=== PATIENT | female | born 1980 | race Two or more races ===

== ENCOUNTER 2017-12-14 15:00 | Outpatient (AMBR) | payer MEDICAID, SELFPAY ==
--- NOTE | 2017-12-14 15:29 | PT.ODAYNRPT ---
PT Outpatient Daily Note Date of Service: December 14, 2017 OP Daily Note Visit Reasons: right shoulder Outpatient Physical Therapy Treatment Date: 12/14/17 Subjective: Pt mention that her shoulder still pop with pain. Objective: Please see flow chart for list of ther ex performed Assessment: tolerate exercises with minimal pain Plan: Continue with PT Length of Time (minutes) of Treatment: 30 Minutes Office Procedures PT Procedures PT Date of Service: 12/14/17 Therapeutic Exercise 30 minutes: Yes
== END 2017-12-17 23:59 | disposition home or self-care (01) ==
PROVIDERS: Visit Provider Physician Assistant
DX: I10 Essential (primary) hypertension (principal)
CPT/HCPCS: 97110

== ENCOUNTER 2017-12-22 08:30 | Outpatient (AMBR) | payer MEDICAID, SELFPAY ==
--- NOTE | 2017-12-20 16:37 | PT.ODAYNRPT ---
PT Outpatient Daily Note Date of Service: December 20, 2017 OP Daily Note Visit Reasons: shoulder pain Outpatient Physical Therapy Treatment Date: 12/20/17 Subjective: Pt mention that her shoulder feels the same. Pt now notice more pain in her and elbow. Objective: Please see flow chart for list of ther ex performed Assessment: tolerate exercises; no change in pain Plan: Continue with PT Length of Time (minutes) of Treatment: 30 Minutes Office Procedures PT Procedures PT Date of Service: 12/20/17 Therapeutic Exercise 30 minutes: Yes
--- NOTE | 2017-12-22 09:36 | PTNOTE_ITS ---
PT OP Progress/Discharge Note Date of Service: December 22, 2017 Progress Note/DC Note Progress Note/Discharge Note: DC Note Patient Information Visit Reasons: shoulder pain Medical Diagnosis: M25.511 Treatment Dx #1: Right Shoulder Pain Service Continue Service or Discharge: Discharge Discharge Date: 12/22/17 Status Subjective: Pt mention that her shoulder continues to hurt (10/27) and seems to be getting worse over the week. Pt still has difficulty with overhead motions, lifting, chores, cooking, and cleaning. Pt stated that all activities perform up to shoulder height is fine. Pt will like to follow up with PCP and feels comfortable with exercises to be done at home. Objective: Right Shoulder AROM Flexion: 170 deg Abduction: 160 deg with pain ER and IR: WNL Right Shoulder PROM: all motions are WNL with end range pain Right Shoulder MMTs: grossly 3/5 Special Test (+) Jt Chauncey (+) Bicep Load II test (+) Crank test Assessment: Pt demonstrate functional shoulder mobility and strength, however, continues to have shoulder pain anterolateral leading to decline function. Pt will no longer benefit from physical therapy due to minimal progress towards goals. Due to Pt's pain Pt has limitation with overhead motions, chores, lifting , and work duties. Pt was instructed on HEP last session and educated to continue exercises to maintain overall mobility. Pt performed all exercises safely, thank you for your referrals. Plan: D/C home with HEP and follow up with PCP Office Procedures PT Procedures PT Date of Service: 12/20/17 Therapeutic Exercise 30 minutes: Yes PT Procedures PT Date of Service: 12/22/17 Therapeutic Exercise 30 minutes: Yes
== END 2018-01-17 23:59 | disposition home or self-care (01) ==
PROVIDERS: Visit Provider Physician Assistant
DX: M25.511 Pain in right shoulder (principal); I10 Essential (primary) hypertension
CPT/HCPCS: 97110

== ENCOUNTER 2018-07-24 17:30 | Outpatient (AMBR) | payer MEDICAID, SELFPAY ==
--- NOTE | 2018-07-18 14:58 | PT.OIERPT ---
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 She reports pain level depending on activity and at rest the pain is 5/10 that increases with lifting and bringing arm to the side and back and reaching OH. 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 Pt has positive labral testing and impingement testing today and internal rotation is most painful. Eval followed by HEP with materials. 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 Ind with HEP 2. Improved AROM to 155 deg FF, 145 deg abduction, ER to 80 deg 3. Improved strength grossly in all planes of motion to 4/5 4. Pt will reach OH to tall cabinets x10 Treatment Plan 1. Manual therapy 2. Therex 3. Modalities as indicated, moist heat, ice, estim Frequency and Duration 2x a week for 6 weeks Certification Dates: 07/18/18 to 10/18/18 Office Procedures PT Procedures PT Date of Service: 07/18/18 OP PT Eval Mod Complex 30 minutes: Yes
--- NOTE | 2018-07-24 19:21 | PT.ODAYNRPT ---
PT Outpatient Daily Note Date of Service: July 24, 2018 OP Daily Note Visit Reasons: right shoulder pain Outpatient Physical Therapy Treatment Date: 07/24/18 Subjective: Same as time of evaluation Objective: See F/S for therex MT: STM R medial deltoid, subacromial region x7' Assessment: Moderate TTP of sub acromial region that limits abduction and Erot ROM. Plan: Continue per POC Length of Time (minutes) of Treatment: 30 Minutes Office Procedures PT Procedures PT Date of Service: 07/18/18 OP PT Eval Mod Complex 30 minutes: Yes PT Procedures PT Date of Service: 07/24/18 Therapeutic Exercise 30 minutes: Yes
== END 2018-08-17 23:59 | disposition home or self-care (01) ==
PROVIDERS: Visit Provider Physician Assistant
DX: M25.511 Pain in right shoulder (principal)
CPT/HCPCS: 97110; 97162

== ENCOUNTER 2024-02-26 12:31 | Emergency (ER) | payer OTHER, SELFPAY ==
[2024-02-26 12:52] VITALS: BP 104/74; PULSE 87; RESP 19; TEMP 36.7; O2SAT 98; BMI 39.6
--- NOTE | 2024-02-26 12:55 | XR_ITS ---
Examination: CT abdomen and pelvis without contrast. Coronal 3-D reconstructions. Sagittal 2-D reconstructions. Date and time of exam:February 26, 2024 1451 hours INDICATIONS: Onset severe generalized abdominal pain today CTDI: vol (mGy): 12.3 DLP: (mGycm): 725 Technique: Axial images of the abdomen have been obtained, 3 mm slice thickness Intravenous contrast material has not been administered. Low dose protocols were performed. One or more of the following dose reduction techniques were used; automated exposure control, adjustment of the mA and/or KV according to patient size, use of iterative reconstruction technique. Findings: No focal liver or splenic lesions Absent gallbladder No pancreatic or adrenal mass No renal or ureteral calculi, no hydronephrosis Aorta normal size Normal appendix 25 mm fat-containing umbilical hernia, minimal inflammatory change about the umbilical tract No pelvic mass Urinary bladder intact IMPRESSION: Absent gallbladder Minimal inflammatory change about the umbilicus, no abscess Normal appendix No bowel obstruction diverticulitis or free air
--- NOTE | 2024-02-26 12:56 | PD.EDRME ---
Rapid Medical Screening Exam RME Arrival date/time: 02/26/24 12:31 43-year-old female presents emergency department complaints of abdominal pain Chief Complaint: Abdominal Pain Time Seen by Provider: 02/26/24 12:50 Vital signs: Vital Signs Temperature 98.1 F 02/26/24 12:52 Pulse Rate 87 02/26/24 12:52 Respiratory Rate 19 02/26/24 12:52 Blood Pressure 104/74 02/26/24 12:52 Pulse Oximetry (%) 98 02/26/24 12:52 Oxygen Delivery Method Room Air 02/26/24 12:52
[2024-02-26 13:12] LABS: Collection Type, Urine Clean Catch
[2024-02-26 13:18] LABS: Hematocrit 40.1 % (36.0-46.0); Mean Corpuscular Hemoglobin 27.5 pg (25.0-35.0); Mean Corpuscular Volume 85 fL (80-100); Red Blood Count 4.72 Miln/mm3 (4.00-5.20); White Blood Count 14.8 Thou/mm3 (3.6-11.0)
[2024-02-26 13:19] LABS: Basophils # (Auto) 0.1 Thou/mm3 (0.0-0.2); Basophils % (Auto) 1 % (0-2.5); Eosinophils # (Auto) 0.2 Thou/mm3 (0.0-0.5); Eosinophils % (Auto) 1 % (0-10); Immature Granulocytes % (Auto) 1 % (0-0); Immature Granulocytes Auto 0.07 Thou/mm3 (0.00-0.00); Lymphocytes # (Auto) 2.4 Thou/mm3 (1.0-4.8); Lymphocytes % (Auto) 16 % (10-50); Mean Corpuscular HGB Conc 32.4 g/dl (31.0-37.0); Monocytes # (Auto) 0.8 Thou/mm3 (0.0-0.8); Monocytes % (Auto) 5 % (0-12); Neutrophils # (Auto) 11.3 Thou/mm3 (1.8-7.7); Neutrophils % (Auto) 76 % (37-80); Nucleated Red Blood Cell % 0 /100 WBC (0); RDW Standard Deviation 43.8 fL (36.4-46.3)
[2024-02-26 13:37] LABS: Alanine Aminotransferase 11 U/L (10-49); Albumin, Serum 4.8 gm/dL (3.5-5.0); Albumin/Globulin Ratio 1.7 (1.2-2.2); Alkaline Phosphatase 80 U/L (46-116); Anion Gap 7 (7-16); Aspartate Amino Transferase 10 U/L (0-34); BUN/Creatinine Ratio 11 Ratio (12-20); Bilirubin,Total 0.3 mg/dL (0.3-1.2); Blood Urea Nitrogen 9 mg/dL (9-23); Calcium 9.3 mg/dL (8.3-10.6); Calcium (Corrected) 9.3 mg/dL (8.5-10.1); Carbon Dioxide 27.2 mMol/L (20.0-31.0); Chloride 102 mMol/L (98-107); Creatinine (Component) 0.8 mg/dL (0.6-1.3); Estimated Creatinine Clearance 92.7 mL/min (>60); Globulin 2.9 gm/dL (2.3-3.5); Glucose 106 mg/dL (74-106); Lipase 43 U/L (12-53); Osmolality,Calculated 270 (275-295); Platelet Count 380 Thou/mm3 (140-440); Potassium 4.2 mMol/L (3.4-5.1); Sodium 136 mMol/L (136-145); Total Protein 7.7 gm/dL (5.7-8.2); eGFR > 60 See Note
[2024-02-26 13:49] LABS: Bacteria,Urine 4+; Bilirubin,Urine Negative (Negative); Blood,Urine 1+ (Negative); Clarity,Urine Turbid (Clear/Hazy); Color,Urine Lt-Yellow (Lt Yel-Yel); Culture Indicated,Urine Contaminated; Glucose, Urine Negative (Negative); Ketones,Urine Negative (Negative); Leukocyte Esterase,Urine Positive (Negative); Nitrite,Urine Positive (Negative); PH,Urine 6.5 (5.0-7.0); Protein,Urine Negative (Neg - Trace); RBC,Urine 5 /hpf (0-3); Specific Gravity,Urine 1.016 (1.001-1.035); Squamous Epithelial Cell,Urine 11 /hpf (0-5); Urobilinogen,Urine Negative mg/dL (0.0-1.0); WBC,Urine 5 /hpf (0-5)
[2024-02-26 13:51] LABS: HCG Qualitative,Urine Negative
[2024-02-26 16:09] VITALS: BP 120/82; PULSE 83; RESP 18; TEMP 36.9; O2SAT 98
--- NOTE | 2024-02-26 16:39 | PD.EDRME ---
Rapid Medical Screening Exam RME Arrival date/time: 02/26/24 12:31 02/26/24 12:31 43-year-old female presents emergency department complaints of abdominal pain Chief Complaint: Abdominal Pain Time Seen by Provider: 02/26/24 12:50 Vital signs: Vital Signs Temperature 98.1 F 02/26/24 12:52 Pulse Rate 87 02/26/24 12:52 Respiratory Rate 19 02/26/24 12:52 Blood Pressure 104/74 02/26/24 12:52 Pulse Oximetry (%) 98 02/26/24 12:52 Oxygen Delivery Method Room Air 02/26/24 12:52 RME Narrative: 02/26/24 12:31 43-year-old female presents emergency department complaints of abdominal pain
--- NOTE | 2024-02-26 18:03 | EDNOTE_ITS ---
ED General RME/HPI General Chief complaint: Abdominal Pain Stated complaint: IMBILICAL/BELLY PAIN X FRI; WORKERS COMP Time Seen by Provider: 02/26/24 12:50 Arrival date/time: 02/26/24 12:31 Low center abdominal pain HPI ongoing for the past 3 days constant, the patient had a similar episode years ago when she had umbilical hernia that was repaired by Dr. Coleman. Patient denies fever chills nausea vomiting painful urinary basilar bloody urination. Related Data Previous Rx's ?Medication ?Instructions ?Recorded hydrocodone 5 mg-acetaminophen 325 1 tab PO Q8H PRN pain #15 tabs 05/03/20 mg tablet ([place]) cephalexin 500 mg capsule 500 mg PO Q8H #20 caps 07/03/20 ciprofloxacin HCl 500 mg tablet 500 mg PO BID #14 tabs 02/26/24 (Cipro) meloxicam 7.5 mg tablet 7.5 mg PO QDAY #14 tabs 02/26/24 Allergies Allergy/AdvReac Type Severity Reaction Status Date / Time No Known Allergies Allergy Verified 02/26/24 12:33 Review of Systems Review of Systems Narrative Review of Systems: GEN: No fever, no chills, no weight loss EYES: No discharge, no visual changes, no pain HEENT: No ear pain, no congestion, no sore throat PULM: No shortness of breath, no cough, no congestion CV: No chest pain, no dyspnea on exertion, no palpitations GI: No nausea, no vomiting, no diarrhea, + pain, no constipation : No frequency, no urgency, no dysuria MUSC/SKEL: No joint pain, no back pain SKIN: No rash PSYCH: No hallucinations, no depression HEME/LYMPH: No easy bleeding or bruising tendencies NEURO: No weakness, no headache Past Medical History Past Medical History NEUROLOGIC: Negative Neurological Disorders or Seizures CARDIAC: Negative Cardiac Disorders, Congestive Heart Failure, Edema or Cellulitis RESPIRATORY: 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); Negative Chronic Obstructive Pulmonary Disease (COPD) or Sleep Apnea GASTROINTESTINAL: Positive Gastrointestinal Disorders and Gall Bladder Disease (FOR THIS PROC); Negative Hepatitis or Colorectal Cancer GENITOURINARY: Negative Genitourinary Disorders, Renal Disease or Prostate Cancer REPRODUCTIVE: Positive Previous Pregnancies (X6); Negative Breast Cancer, Endometriosis, Pelvic Inflammatory Disease or Testicular Cancer MUSCULOSKELETAL: Negative Musculoskeletal Disorders or Bone Cancer ENDOCRINE: Negative Endocrine Disorders, Diabetes Mellitus Type 1 or Diabetes Mellitus Type 2 HEMATOLOGIC: Negative Blood Disorders PSYCHO/SOCIAL: Negative Depression or Anxiety OTHER HISTORY: Negative Hospitalization, Autoimmune Disease, Down Syndrome, Developmental Delay, Shingles, Falls, Blood Transfusions, Blood Transfusion Reaction, Anesthesia Reactions, Organ Transplant, Chemotherapy, Radiation Therapy, Hyperbaric Therapy, MRSA, VRSA, Vancomycin-Resistant Enterococci, Human Immunodeficiency Virus (HIV), Chicken Pox, Measles, Mumps, Rubella (Citizen Of [place] Measles), Pertussis, Clostridium Difficile, Cancer, Breast Cancer, Cervical Cancer, Colorectal Cancer, Lung Cancer, Ovarian Cancer, Prostate Cancer or Testicular Cancer Family History FAMILY HISTORY: Positive Family Psychiatric Problems (FATHER (DEPRESSION,ANXIETY)), Family Cardiac Disorders (FATHER (HTN)), Family Surgery (MOTHER) and Family Anesthesia Reaction (MOTHER (DIFFICULTY BREATHING)); Negative Family Respiratory Disorders, Family Gastrointestinal Problems or Family Cancer Surgical History SURGICAL: Positive Tonsillectomy and Section (X2); Negative Pacemaker or Organ Transplant Social History SMOKING STATUS: Never smoker ED Exam Narrative Physical exam: [General: Obese not in any acute distress Head normocephalic HEENT: Within acceptable limits Neck is supple nontender Chest equal chest rise nontender to palpation Respiratory: Clear to auscultation no wheezes crackles or rubs CV: Rate rhythm is regular no murmurs rubs or clicks Abdomen is distended secondary to body habitus mild center abdominal pain over the pannus no masses appreciated no erythema or edema Back: No CVA tenderness no spinous process tenderness from cervical spine thoracic and lumbar spine Skin: Intact no petechiae rash induration ulceration or crepitus Extremities: Moving all extremity against resistance cap refill less than 2 seconds neurosensory intact Neuro: Awake alert oriented x3 Glascow coma 15 no focal deficits] Course Quality Measures none Orders Category Date Time Status CT abdomen pelvis wo con Stat Exams 02/26/24 12:55 Completed CBC Stat Lab 02/26/24 13:00 Completed Comprehensive Metabolic Panel Stat Lab 02/26/24 13:00 Completed Extra Blue Top for Platelet Routine Lab 02/26/24 13:00 Completed HCG Qualitative,Urine Stat Lab 02/26/24 13:03 Completed Lipase Stat Lab 02/26/24 13:00 Completed UA, C/S IF [Urinalysis, C/S if Indicated] Stat Lab 02/26/24 13:03 Completed Vital Signs Vital signs: Vital Signs Temperature 98.1 F 02/26/24 12:52 Pulse Rate 87 02/26/24 12:52 Respiratory Rate 19 02/26/24 12:52 Blood Pressure 104/74 02/26/24 12:52 Pulse Oximetry (%) 98 02/26/24 12:52 Oxygen Delivery Method Room Air 02/26/24 12:52 [facility] Patient data External records reviewed:: [facility] previous records Clinical information provided by:: patient Social determinants that could affect healthcare access:: none Patient has the following chronic illnesses:: Obesity How is presenting disease/condition affected by chronic disease/condition?: u neffected by Evaluation data The following diagnostics were reviewed and interpreted by me:: lab results and radiology exam(s) Lab and/or radiology exams considered but not ordered:: CBC shows no acute leukocytosis anemia thrombocytopenia CMP shows no acute electrolyte imbalances renal impairment transaminitis or T. bili elevation Lipase normal Urine shows the patient is positive for nitrites leukocyte*small amount of WBCs but there are also squamous epithelia CT shows the patient has a small fat filled umbilical hernia. Interpretation Summary: There is no acute finding this patient that requires emergent or immediate intervention. Patient is vies return of Dr. Coleman's office for the umbilical hernia. I will try the patient on meloxicam instead of ibuprofen at home for pain management and will start her on antibiotics for the UTI. Medications Medications considered but not ordered:: None Medication administrations:: None Consultations Consultation(s) initiated? (list below): No Diagnosis Differential Diagnosis ED Complaint MDM: Incarcerated hernia fat hernia abdominal pain of unknown etiology Most likely diagnosis given after review of the tests above:: Umbilical hernia abdominal pain UTI Admission Indicated Admission indicated?: not indicated Explain why admission is indicated or not indicated:: Stable for outpatient follow-up Admission Request Was there a request for admission?: No Disposition Plan Disposition Plan: Discharge Discharge Attestation Discharge Attestation: The patient and all family members were given an opportunity to ask questions and understood the discharge instructions. Discharge instructions specifically effects, indications for sooner follow up or return to the emergency department, and the expected course of current diagnosis. Patient condition: Stable Medical Decision Making Differential Diagnosis Differential Diagnosis: Incarcerated hernia fat hernia abdominal pain of unknown etiology Lab Data 02/26/24 13:00 02/26/24 13:00 Labs: Lab Results 02/26/24 02/26/24 Range/Units 13:00 13:03 WBC 14.8 H (3.6-11.0) Thou/mm3 RBC 4.72 (4.00-5.20) Miln/mm3 Hgb 13.0 (12.0-16.0) g/dL Hct 40.1 (36.0-46.0) % MCV 85 (80-100) fL MCH 27.5 (25.0-35.0) pg MCHC 32.4 (31.0-37.0) g/dl RDW Std Deviation 43.8 (36.4-46.3) fL Plt Count 380 (140-440) Thou/mm3 Neut % (Auto) 76 (37-80) % Lymph % (Auto) 16 (10-50) % Mobile % (Auto) 5 (0-12) % Eos % (Auto) 1 (0-10) % Baso % (Auto) 1 (0-2.5) % Neut # (Auto) 11.3 H (1.8-7.7) Thou/mm3 Lymph # (Auto) 2.4 (1.0-4.8) Thou/mm3 Mobile # (Auto) 0.8 (0.0-0.8) Thou/mm3 Eos # (Auto) 0.2 (0.0-0.5) Thou/mm3 Baso # (Auto) 0.1 (0.0-0.2) Thou/mm3 Immature Gran # (Auto) 0.07 H (0.00-0.00) Thou/mm3 Absolute Nucleated RBC 0.00 (0.00-0.00) Thou/mm3 Immature Gran % 1 H (0-0) % Nucleated RBC % 0 (0) /100 WBC Sodium 136 (136-145) mMol/L Potassium 4.2 (3.4-5.1) mMol/L Chloride 102 (98-107) mMol/L Carbon Dioxide 27.2 (20.0-31.0) mMol/L Anion Gap 7 (7-16) BUN 9 (9-23) mg/dL Creatinine 0.8 (0.6-1.3) mg/dL Estim Creat Clear Calc 92.7 (>60) mL/min eGFR > 60 (60 - ) See Note BUN/Creatinine Ratio 11 L (12-20) Ratio Glucose 106 (74-106) mg/dL Calculated Osmolality 270 L (275-295) Calcium 9.3 (8.3-10.6) mg/dL Corrected Calcium 9.3 (8.5-10.1) mg/dL Total Bilirubin 0.3 (0.3-1.2) mg/dL AST 10 (0-34) U/L ALT 11 (10-49) U/L Alkaline Phosphatase 80 (46-116) U/L Total Protein 7.7 (5.7-8.2) gm/dL Albumin 4.8 (3.5-5.0) gm/dL Globulin 2.9 (2.3-3.5) gm/dL Albumin/Globulin Ratio 1.7 (1.2-2.2) Lipase 43 (12-53) U/L Ur Collection Type Clean Catch Urine Color Lt-Yellow (Lt Yel-Yel) Urine Clarity Turbid A (Clear/Hazy) Urine pH 6.5 (5.0-7.0) Ur Specific [place] 1.016 (1.001-1.035) Urine Protein Negative (Neg - Trace) Urine Glucose (UA) Negative (Negative) Urine Ketones Negative (Negative) Urine Blood 1+ A (Negative) Urine Nitrite Positive (Negative) Urine Bilirubin Negative (Negative) Urine Urobilinogen (Auto) Negative (0.0-1.0) mg/dL Ur Leukocyte Esterase Positive (Negative) Urine RBC 5 H (0-3) /hpf Urine WBC 5 (0-5) /hpf Ur Squamous Epith Cells 11 H (0-5) /hpf Urine Bacteria 4+ A (None) Ur Culture Indicated? Contaminated Urine HCG, Qual Negative Discharge Plan Plan Patient Disposition: HOME (Self Care) Patient condition on transfer: Stable Prescriptions/Referrals Prescriptions/Med Rec: New meloxicam 7.5 mg tablet 7.5 mg PO QDAY Qty: 14 0RF ciprofloxacin HCl [Cipro] 500 mg tablet 500 mg PO BID Qty: 14 0RF No Action cephalexin 500 mg capsule 500 mg PO Q8H Qty: 20 0RF hydrocodone-acetaminophen [[place]] 5-325 mg tablet 1 tab PO Q8H MDD 4 g APAP PRN (Reason: pain) Qty: 15 0RF Referrals: Jimmy Weber MD [Primary Care Provider] - In 1 week Noni Coleman MD [Physician] - In 1 week Problem List Clinical Impression: Abdominal pain, Hernia, umbilical, UTI (urinary tract infection) Patient/Caregiver Discharge Instructions Education Materials: Abdominal Pain, Understanding Urinary Tract ... Print Language: British Stand Alone Forms: Belén Award Info., Patient Portal Info Letter, Work/School Release PA/SPANISH MOSS PICKER Supervising Physician PA/SP[employer]ISH [employer] Supervising Physician: Danish Cartwright ENP
== END 2024-02-26 18:29 | disposition home or self-care (01) ==
PROVIDERS: Nurse Practitioner Primary Care; Emergency Provider Emergency Medicine; PCP Family Medicine
DX: K42.9 Umbilical hernia without obstruction or gangrene (principal); N39.0 Urinary tract infection, site not specified
CPT/HCPCS: 36415; 74176; 80053; 81001; 81025; 83690; 85025; 99284

== ENCOUNTER 2024-05-23 18:24 | Emergency (ER) | payer MEDICAID, SELFPAY ==
[2024-05-23 18:25] VITALS: BMI 41.0
[2024-05-23 18:34] VITALS: BP 125/80; PULSE 88; RESP 18; TEMP 36.9; O2SAT 99
--- NOTE | 2024-05-23 18:41 | XR_ITS ---
Examination: Shoulder,right, 3 views Technique: Shoulder AP internal rotation, AP external rotation, Y view shoulder, 3 views Exam date and time :May 2024 1845 hrs. Indications: Patient fell today with injury to the shoulder, shoulder pain Findings: No shoulder fracture or dislocation No AC joint separation Impression: No shoulder fracture or dislocation
--- NOTE | 2024-05-23 18:45 | PD.EDUPEX ---
Upper Extremity Injury RME/HPI General Chief Complaint: Extremity Injury, Upper Stated Complaint: Pain to right shoulder after a fall today Time Seen by Provider: 05/23/24 18:41 Arrival date/time: 05/23/24 18:24 43F with no significant PMH presents to ED with R shoulder pain after trip and fall today. Patient denies hitting her head. Limitations: no limitations Related Data Previous Rx's ?Medication ?Instructions ?Recorded hydrocodone 5 mg-acetaminophen 325 1 tab PO Q8H PRN pain #15 tabs 05/03/20 mg tablet ([place]) cephalexin 500 mg capsule 500 mg PO Q8H #20 caps 07/03/20 ciprofloxacin HCl 500 mg tablet 500 mg PO BID #14 tabs 02/26/24 (Cipro) meloxicam 7.5 mg tablet 7.5 mg PO QDAY #14 tabs 02/26/24 Allergies Allergy/AdvReac Type Severity Reaction Status Date / Time No Known Allergies Allergy Verified 02/26/24 12:33 Review of Systems Musculoskeletal Musculoskeletal: Reports as per HPI and Reports arthralgias Past Medical History Past Medical History NEUROLOGIC: Negative Neurological Disorders or Seizures CARDIAC: Negative Cardiac Disorders, Congestive Heart Failure, Edema or Cellulitis RESPIRATORY: 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); Negative Chronic Obstructive Pulmonary Disease (COPD) or Sleep Apnea GASTROINTESTINAL: Positive Gastrointestinal Disorders and Gall Bladder Disease (FOR THIS PROC); Negative Hepatitis or Colorectal Cancer GENITOURINARY: Negative Genitourinary Disorders, Renal Disease or Prostate Cancer REPRODUCTIVE: Positive Previous Pregnancies (X6); Negative Breast Cancer, Endometriosis, Pelvic Inflammatory Disease or Testicular Cancer MUSCULOSKELETAL: Negative Musculoskeletal Disorders or Bone Cancer ENDOCRINE: Negative Endocrine Disorders, Diabetes Mellitus Type 1 or Diabetes Mellitus Type 2 HEMATOLOGIC: Negative Blood Disorders PSYCHO/SOCIAL: Negative Depression or Anxiety OTHER HISTORY: Negative Hospitalization, Autoimmune Disease, Down Syndrome, Developmental Delay, Shingles, Falls, Blood Transfusions, Blood Transfusion Reaction, Anesthesia Reactions, Organ Transplant, Chemotherapy, Radiation Therapy, Hyperbaric Therapy, MRSA, VRSA, Vancomycin-Resistant Enterococci, Human Immunodeficiency Virus (HIV), Chicken Pox, Measles, Mumps, Rubella (Chinese Measles), Pertussis, Clostridium Difficile, Cancer, Breast Cancer, Cervical Cancer, Colorectal Cancer, Lung Cancer, Ovarian Cancer, Prostate Cancer or Testicular Cancer Family History FAMILY HISTORY: Positive Family Psychiatric Problems (FATHER (DEPRESSION,ANXIETY)), Family Cardiac Disorders (FATHER (HTN)), Family Surgery (MOTHER) and Family Anesthesia Reaction (MOTHER (DIFFICULTY BREATHING)); Negative Family Respiratory Disorders, Family Gastrointestinal Problems or Family Cancer Surgical History SURGICAL: Positive Tonsillectomy and Section (X2); Negative Pacemaker or Organ Transplant Social History SMOKING STATUS: Never smoker ED Exam General Limitations: Present no limitations General appearance: Present alert and in no apparent distress Head Head exam: Present atraumatic Eye Eye exam: Present normal appearance, PERRL and EOMI ENT ENT exam: Present normal exam, normal oropharynx and mucous membranes moist Neck Neck exam: Present normal inspection, full ROM and trachea midline Chest Chest inspection: Present normal inspection and symmetric chest wall rise Respiratory Respiratory exam: Present normal lung sounds bilaterally Cardiovascular Cardiovascular exam: Present regular rate, normal rhythm and normal heart sounds Abdominal Exam Abdominal exam: Present soft and normal bowel sounds Extremities Exam Extremities exam: Present full ROM Expanded Upper Extremity Exam Shoulder exam: Present full ROM (R) and tenderness Back Exam Back exam: Present normal inspection and full ROM Neurological Exam Neurological exam: Present alert, oriented X3 and CN II-XII intact Psychiatric Psychiatric exam: Present normal affect and normal mood Skin Skin exam: Present warm, dry, intact and normal color Course Quality Measures none Orders Category Date Time Status sling [Splint / Immobilizer] STAT Care 05/23/24 18:41 Completed XR shoulder RT min 2V Stat Exams 05/23/24 18:41 Completed Naproxen [Naprosyn] Med 05/23/24 18:46 Discontinued 500 mg PO X1 ONE Vital Signs Vital signs: Vital Signs Temperature 98.5 F 05/23/24 18:34 Pulse Rate 88 05/23/24 18:34 Respiratory Rate 18 05/23/24 18:34 Blood Pressure 125/80 05/23/24 18:34 Pulse Oximetry (%) 99 05/23/24 18:34 Oxygen Delivery Method Room Air 05/23/24 18:34 O2 at 99% on RA and WNLs Extremity Injury MDM Narrative MDM Narrative:: 43F with no significant PMH presents to ED with R shoulder pain after trip and fall today. Patient denies hitting her head. Physical exam reveals R shoulder tenderness. ROM intact, but painful. Patient is afebrile, calm, and alert. XR no fx. Given sling, meds, and career guidance counselor. Patient data External records reviewed:: [facility] previous records Clinical information provided by:: patient Social determinants that could affect healthcare access:: none Patient has the following chronic illnesses:: none How is presenting disease/condition affected by chronic disease/condition?: no chronic disease Evaluation data The following diagnostics were reviewed and interpreted by me:: radiology exam(s) Lab and/or radiology exams considered but not ordered:: ordered Interpretation Summary: above Medications / Prescriptions Medications or Prescriptions considered but not ordered:: ordered Medication administrations:: Medication Administration History Discontinued Medications Naproxen (Naproxen 250 Mg Tablet) 500 mg PO X1 ONE Stop: 05/23/24 18:47 Last Admin: 05/23/24 19:10 Dose: 500 mg Documented By: MP above Consultations Consultation(s) initiated? (list below): No Diagnosis Upper Extremity Injury Differential Diagnosis: dislocation of shoulder, fracture of humerus, fracture of clavicle and other (shoulder contusion) Most likely diagnosis given after review of the tests above:: shoulder contusion Admission Indicated Admission indicated?: not indicated Admission Request Was there a request for admission?: No Disposition Plan Disposition Plan: Discharge Discharge Attestation Discharge Attestation: The patient and all family members were given an opportunity to ask questions and understood the discharge instructions. Discharge instructions specifically effects, indications for sooner follow up or return to the emergency department, and the expected course of current diagnosis. Patient condition: Stable Discharge Plan Plan Patient Disposition: HOME (Self Care) Disposition Comment: Stable Prescriptions/Referrals Prescriptions/Med Rec: No Action cephalexin 500 mg capsule 500 mg PO Q8H Qty: 20 0RF hydrocodone-acetaminophen [[place]] 5-325 mg tablet 1 tab PO Q8H MDD 4 g APAP PRN (Reason: pain) Qty: 15 0RF meloxicam 7.5 mg tablet 7.5 mg PO QDAY Qty: 14 0RF ciprofloxacin HCl [Cipro] 500 mg tablet 500 mg PO BID Qty: 14 0RF Referrals: No Primary/Family,Physician [Primary Care Provider] - In 1 week Problem List Clinical Impression: Contusion of shoulder Patient/Caregiver Discharge Instructions Education Materials: ED Shoulder Contusion Additional Instructions: Please follow-up with PCP within 24-48 hours and return immediately if symptoms worsen. If problem persists, recommend outpatient PT and/or MRI follow-up. In the meantime, rest, use ice/heat, and/or compression. Print Language: Khmer Stand Alone Forms: Work/School Release, Patient Portal Info Letter PA/LUMITE INJECTOR Supervising Physician PA/LUMITE INJECTOR Supervising Physician: Dr. Black
[2024-05-23] MEDS: NAPROXEN 250 MG TABLET 500 MG PO (19:10)
[2024-05-23 19:53] VITALS: BP 123/84; PULSE 81; RESP 16; TEMP 36.7; O2SAT 97
== END 2024-05-23 19:54 | disposition home or self-care (01) ==
PROVIDERS: Emergency Provider Emergency Medicine
DX: S40.011A Contusion of right shoulder, initial encounter (principal); W01.0XXA Fall on same level from slipping, tripping and stumbling without subsequent striking against object, initial encounter
CPT/HCPCS: 73030; 99283; A4565; A9270

== ENCOUNTER 2024-10-17 08:00 | Day surgery (SDC) | payer MEDICAID, SELFPAY ==
--- NOTE | 2024-10-15 06:20 | EKG_ITS ---
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
[2024-10-15 08:05] VITALS: BMI 40.9
[2024-10-15 09:41] LABS: Basophils # (Auto) 0.1 Thou/mm3 (0.0-0.2); Basophils % (Auto) 0 % (0-2.5); Eosinophils # (Auto) 0.2 Thou/mm3 (0.0-0.5); Eosinophils % (Auto) 2 % (0-10); Hematocrit 38.8 % (36.0-46.0); Hemoglobin 12.3 g/dL (12.0-16.0); Immature Granulocytes Auto 0.03 Thou/mm3 (0.00-0.00); Lymphocytes # (Auto) 1.9 Thou/mm3 (1.0-4.8); Lymphocytes % (Auto) 17 % (10-50); Mean Corpuscular HGB Conc 31.7 g/dl (31.0-37.0); Mean Corpuscular Hemoglobin 27.6 pg (25.0-35.0); Mean Corpuscular Volume 87 fL (80-100); Monocytes # (Auto) 0.6 Thou/mm3 (0.0-0.8); Monocytes % (Auto) 5 % (0-12); Neutrophils # (Auto) 8.5 Thou/mm3 (1.8-7.7); Neutrophils % (Auto) 76 % (37-80); Nucleated Red Blood Cell # 0.00 Thou/mm3 (0.00-0.00); Nucleated Red Blood Cell % 0 /100 WBC (0); Platelet Count 211 Thou/mm3 (140-440); RDW Standard Deviation 44.5 fL (36.4-46.3); Red Blood Count 4.45 Miln/mm3 (4.00-5.20); White Blood Count 11.2 Thou/mm3 (3.6-11.0)
[2024-10-15 09:56] LABS: Anion Gap 10 (7-16); BUN/Creatinine Ratio 11 Ratio (12-20); Blood Urea Nitrogen 9 mg/dL (9-23); Calcium 8.7 mg/dL (8.3-10.6); Carbon Dioxide 24.7 mMol/L (20.0-31.0); Chloride 105 mMol/L (98-107); Creatinine (Component) 0.8 mg/dL (0.6-1.3); Estimated Creatinine Clearance 93.5 mL/min (>60); Glucose 98 mg/dL (74-106); Osmolality,Calculated 278 (275-295); Potassium 4.1 mMol/L (3.4-5.1); Sodium 140 mMol/L (136-145); eGFR > 60 See Note
[2024-10-15 10:06] LABS: HCG,Qualitative Serum Negative
[2024-10-17] VITALS (11 sets, daily range): BP systolic 90–116; BP diastolic 66–79; PULSE 73–112; RESP 13–20; TEMP 36.2–36.9; O2SAT 94–100; BMI 40.6
--- NOTE | 2024-10-17 11:09 | PD.SUROPNT ---
Date of Procedure 10/17/24 Pre Op Diagnosis Incarcerated recurrent incisional hernia Post Op Diagnosis Incarcerated recurrent incisional hernia Procedure Laparoscopy, primary repair of incarcerated recurrent incisional hernia Findings Patient was noted to have periumbilical incisional hernia with incarcerated preperitoneal fat. She had an intact and well incorporated mesh from previous operation Procedure Description Patient brought into the operating room in supine position. After administration of general tracheal anesthesia, patient's abdomen prepped and draped in standard surgical manner. An approximately 5 mm incision was made in left upper quadrant Veress needle was inserted. Pneumoperitoneum was obtained up to 15 mmHg. The Veress needle was removed and 5 mm trocar was placed. Laparoscopic camera was inserted and the abdomen was inspected. Patient was noted to have a previously placed mesh in periumbilical region, the mesh was well incorporated and intact. There was no evidence of omental or bowel incarceration or significant adhesions. The periumbilical defect was approximately 1 and half centimeter in diameter, I elected to repair the defect primarily as patient had mention placed previously. Laparoscopic camera was removed, pneumoperitoneum was evacuated and trocar was removed. An approximately 3 cm semicircular incision was made above the umbilicus and dissection was deepened soft tissue. The hernia sac was circumferentially dissected out surrounding tissue. The hernia sac along with incarcerated preperitoneal fat were excised. The defect was primarily closed with interrupted sutures using 0 Ethibond. Soft tissue reapproximated with interrupted sutures using 2-0 Vicryl and incisions were closed with 4-0 Monocryl in subcuticular fashion. Instruments, needles and sponge counts were reported to be correct x 2. Patient tolerated the procedure well. She was extubated, breathing spontaneously and without difficulty and was transferred to postanesthesia care in stable condition. Anesthesia GETA and local Pathology / specimen Other (Hernia sac and contents) Estimated Blood Loss 5 Condition Stable Disposition PACU Surgeon Noni Coleman MD Surgical Staff Operation Date: 10/17/24 10:30 Case Staff [employer] MAINTENANCE CONSULTANT: Erma Pedersen RN First Assistant: Lissy Daniel
--- NOTE | 2024-10-17 11:16 | SUR.PHASEI ---
pt received from OR in recovery bay 4. pt asleep but responds to voice, breathing unlabored on oxymask 8l. v/s stable. pt dressing to abd dermabond x2 cdi. report received from William BLANCHARD and Erma CHAMBERLAIN.
--- NOTE | 2024-10-17 12:40 | SUR.PHASEII ---
Received report on pt. s/p surgery from Branden BLANCHARD. Pt. is resting with eyes closed, responds to verbal commands, VSS, dressing to abdomen CDI.
[2024-10-17] MEDS: fentaNYL CIT INJ 50 mCg/ML AMP 2ML IVP (12:56)
--- NOTE | 2024-10-17 13:20 | SUR.PHASEII ---
Pt. meets criteria for discharge, VSS, no c/o pain or nausea at this time, lap sites x2 CDI, IV discontinued without complications, discharge instructions provided to pt. and pt.'s father with use of spanish interpreter services, verbalized understanding. Abdominal binder in place per order. Pt. escorted to vehicle via w/c with all of belongings by staff.
== END 2024-10-17 13:20 | disposition home or self-care (01) ==
PROVIDERS: Anesthesiology; PCP Family Medicine; Referring Provider Surgery; Visit Provider Surgery
PROC: 0WQF4ZZ Repair Abdominal Wall, Percutaneous Endoscopic Approach (ICD-10-PCS; CPT 49614; principal; 2024-10-17 10:15)
DX: K43.0 Incisional hernia with obstruction, without gangrene (principal); Z01.810 Encounter for preprocedural cardiovascular examination
CPT/HCPCS: 49614; 36415; 80048; 84703; 85025; 93005; A4217; A4649; J0131; J0360; J0690; J1100; J1885; J2371; J2405; J2704; J3010; J3490

== ENCOUNTER 2024-12-05 15:30 | Outpatient (RCR) | payer MEDICAID, SELFPAY ==
--- NOTE | 2024-11-26 15:24 | PT.OIERPT ---
PT OP Initial Eval Patient Information Outpatient Physical Therapy Treatment Date: 11/26/24 Visit Reasons: RT SHOULDER PAIN Medical Diagnosis: Right Shoulder Pain Treatment Dx #1: Right Shoulder Mobility Deficits Treatment Dx #2: Right Shoulder Pain Start of Care: 11/26/24 Date of Onset: 1 year ago Smoking Status Smoking Status: Never smoker Initial Assessment Subjective: Pt is a 44 y/o female reports of chronic right shoulder pain (8/10) worsening since her fall ~ 1 year ago. No recent MRI has been done; xray negative. Pt has limitation with overhead motions, chores, self care, cooking, cleaning, and performing recreational activities. Pt mentioned she has attempted physical therapy in the past for her right shoulder without success. Objective: Right Shoulder PROM: all motions are WFL with end range pain in all plane Right Shoulder AROM Flexion: 160 deg Abduction: 150 deg External Rotation: 90 deg Internal Rotation: 70 deg Right Shoulder MMTs: grossly 3+/5 Right Scapula MMTs: grossly 3/5 Special Test (+) active nascimento's (+) speed's Assessment: Pt demonstrate right shoulder pain with mobility deficits leading to difficulty with ADLs. Pt will attempt physical therapy if pain persist Pt will be refer back to provider for further consultation Short Term and Senior Care Goals 1) Increase right shoulder AROM WNL in 6 wks to be able to perform overhead motions 2) Decrease shoulder pain to 2/10 in 6 wks to be able to perform recreational activities 3) Increase right scapula MMTs grossly to 4-/5 in 6 wks to be able to perform self care activities 4) Increase right shoulder MMTs grossly to 4/5 in 6 wks to be able to perform lifting activities Treatment Plan 1) Manual Therapy 2) Therapeutic Activities 3) Therapeutic Exercises 4) Modalities (ice, heat) Frequency and Duration: 2 x wk for 6 wks Certification Dates: 11/26/24 to 02/25/25 Procedure Charges OP PT Eval Mod Complex 30 minutes: Yes
--- NOTE | 2024-12-03 15:54 | PT.ODAYNRPT ---
PT Outpatient Daily Note OP Daily Note Outpatient Physical Therapy Treatment Date: 12/03/24 Visit Reasons: RT SHOULDER PAIN Subjective: Pt's shoulder continues to hurt and has difficulty sleeping at night. Objective: Please see flow chart for list of ther ex performed Assessment: pain with all exercises; patient able to complete instructed reps. Post ice helped with pain and soreness Plan: Continue with PT Length of Time (minutes) of Treatment: 30 Minutes Procedure Charges Therapeutic Exercise 30 minutes: Yes
--- NOTE | 2024-12-05 16:06 | PT.ODAYNRPT ---
PT Outpatient Daily Note OP Daily Note Outpatient Physical Therapy Treatment Date: 12/05/24 Visit Reasons: RT SHOULDER PAIN Subjective: Pt c/o moderate shoulder pain. Objective: Please see flow sheet for ther ex list. Assessment: Pt instructed to perform AAROM exercises within pain free range. Plan: Continue with pOC. Length of Time (minutes) of Treatment: 30 Minutes Procedure Charges Therapeutic Exercise 30 minutes: Yes
== END 2024-12-17 23:59 | disposition home or self-care (01) ==
LOC: CPTX 15:30
PROVIDERS: PCP Family Medicine; Referring Provider Family Medicine; Visit Provider Family Medicine
DX: M25.511 Pain in right shoulder (principal); G89.29 Other chronic pain
CPT/HCPCS: 97110; 97162

== ENCOUNTER 2025-01-07 15:30 | Outpatient (RCR) | payer MEDICAID, SELFPAY ==
--- NOTE | 2024-12-23 16:38 | PT.ODAYNRPT ---
PT Outpatient Daily Note OP Daily Note Outpatient Physical Therapy Treatment Date: 12/23/24 Visit Reasons: RT shoulder pain Subjective: Pt c/o R shoulder pain. Objective: Please see flow sheet for ther ex list. Assessment: Pt demonstrates poor activity tolerance due to pain response. Plan: Continue with poC. Length of Time (minutes) of Treatment: 30 Minutes Procedure Charges Therapeutic Exercise 30 minutes: Yes
--- NOTE | 2024-12-31 15:52 | PT.ODAYNRPT ---
PT Outpatient Daily Note OP Daily Note Outpatient Physical Therapy Treatment Date: 12/31/24 Visit Reasons: RT shoulder pain Subjective: Pt reports R shoulder pain has gone down slightly but still has pain with carrying/lifting light objects. Objective: Please see flow sheet for ther ex list. Assessment: Delay with intervention progression due to pain response. Plan: Continue with pOC. Length of Time (minutes) of Treatment: 30 Minutes Procedure Charges Therapeutic Exercise 30 minutes: Yes
--- NOTE | 2025-01-03 16:09 | PT.ODAYNRPT ---
PT Outpatient Daily Note OP Daily Note Outpatient Physical Therapy Treatment Date: 01/03/25 Visit Reasons: RT shoulder pain Subjective: Pt reports shoulder continues to be painful and sore. Objective: Please see flow sheet for ther ex list. Assessment: Slow progress with symptoms delaying progression in clinic. Plan: Continue with poC. Length of Time (minutes) of Treatment: 30 Minutes Procedure Charges Therapeutic Exercise 30 minutes: Yes
--- NOTE | 2025-01-07 15:43 | PT.ODS1RPT ---
PT OP Progress/Discharge Note Date of Service: 01/07/25 Progress Note/DC Note Progress Note/Discharge Note: DC Note Patient Information Visit Reasons: RT shoulder pain Medical Diagnosis: Right Shoulder Pain Treatment Dx #1: Right Shoulder Mobility Deficits Treatment Dx #2: Right Shoulder Pain Service Continue Service or Discharge: Discharge Discharge Date: 01/07/25 Status Subjective: Pt continues to have right shoulder pain (6/10) with activities. Pt mentioned she limited with overhead motions, chores, lifting, cooking, and cleaning. At this time Pt will like to stop physical therapy and follow up with PCP. Objective: Right Shoulder AROM: all motions are WFL with end range pain in all plane Right Shoulder MMTs: grossly 3+/5 Right Scapula MMTs: grossly 3+/5 Special Test (+) active nascimento's (+) speed's Assessment: Pt demonstrate functional right shoulder mobility and strength, however, continue to have pain leading to difficulty with ADLs. Pt will no longer benefit from physical therapy and recommend shoulder MRI to help rule in/out nature of pain. Pt was instructed on HEP last session and educated to continue exercises to maintain overall mobility. Pt performed all exercises safely, thank you for your referrals. Plan: D/C home with HEP and follow up with MD SCOTT Procedure Charges Therapeutic Exercise 30 minutes: Yes
== END 2025-01-17 23:59 | disposition home or self-care (01) ==
LOC: CPTX 15:30
PROVIDERS: PCP Family Medicine; Referring Provider Family Medicine; Visit Provider Family Medicine
DX: M25.511 Pain in right shoulder (principal); G89.29 Other chronic pain
CPT/HCPCS: 97110